=== PATIENT | female | born 1955 | race Caucasian/White ===

== ENCOUNTER 2018-11-16 10:00 | Inpatient (IN) ==
--- NOTE | 2018-11-16 10:33 | Emergency Department Note ---
Disposition Clinical Impression: NSTEMI (non-ST elevated myocardial infarction) Disposition: Admitted As Inpatient Condition: Fair Time of Disposition: 11:55 General Adult HPI - General Chief complaint: ED Chest Pain Stated complaint: CP x1wk Time Seen by Provider: 11/16/18 10:02 Source: patient - History of Present Illness HPI Narrative: Patient is a 63-year-old female with a history of hypertension, diabetes, COPD, CAD, prior MN with stent placement who presented today with chest pain and pressure. She states this pressure started about a week ago but has increased over the past day, she describes it as a pressure that radiates to her neck it comes and goes, she feels sweating. Her shortness of breath is at baseline for her COPD she has no nausea or vomiting. She took a nitroglycerin today which helped the pain. She is an active smoker. She had an echocardiogram one month ago which demonstrated an ejection fraction of 65% and mild left ventricular hypertrophy. She states she has never had a stress test. One week prior she had an endoscopy procedure performed which showed dilated her distal esophagus. Pain Scale: 0 - Related Data Home Medications Medication Instructions Recorded Confirmed Aspirin 81 mg PO DAILY 02/10/16 02/06/17 Atorvastatin Calcium [Lipitor] 80 mg PO DAILY 02/10/16 02/06/17 Lisinopril/Hydrochlorothiazide 1 each PO BID 02/10/16 02/06/17 [Zestoretic 20-25 mg Tablet] Metoprolol [Lopressor] 50 mg PO BID 02/10/16 02/06/17 Nitroglycerin [Nitrostat] 0.4 mg SL Q5M PRN 02/10/16 02/06/17 Omeprazole [PriLOSEC] 40 mg PO DAILY 02/10/16 02/06/17 metFORMIN [Glucophage] 500 mg PO DAILY 02/10/16 02/06/17 Albuterol Sulfate [Ventolin Hfa] 2 puff IH Q4H PRN 02/06/17 02/06/17 Budesonide/Formoterol 160/4.5 2 puff IH BIDR 02/06/17 02/06/17 [Symbicort 160/4.5] Allergies Allergy/AdvReac Type Severity Reaction Status Date / Time No Known Allergies Allergy Verified 02/06/17 08:57 All systems ED: reviewed and negative except as stated. Review of Systems: As Per HPI Constitutional: Denies: fever, chills, weakness Cardiovascular: Reports: chest pain, dyspnea on exertion. Denies: palpitations, orthopnea, edema Respiratory: Denies: cough, dyspnea, wheezes Gastrointestinal: Denies: abdominal pain, nausea, vomiting, diarrhea, constipation, hematemesis Musculoskeletal: Denies: back pain Psychiatric: Reports: anxiety. Denies: depression Past Medical History - Past Medical History Attestation: Yes The following information was validated with the patient. Medical history: Reports: asthma, COPD, coronary artery disease, diabetes, hyperlipidemia, hypertension, myocardial infarction, other Surgical history: Reports: angioplasty/stent, , herniorrhaphy Psychiatric history: Reports: no psych history - Social History Smoking Status: Current every day smoker Smokeless Tobacco Status: No Alcohol use: Reports: occasionally Drug use: Reports: none Physical Exam - General Limitations: no limitations General appearance: alert - Head Head exam: atraumatic, normocephalic - Eye Eye exam: Present: normal appearance, PERRL, EOMI. Absent: scleral icterus, conjunctival injection - ENT ENT exam: normal exam, normal oropharynx, mucous membranes moist - Chest Chest inspection: Present: normal inspection, symmetric chest wall rise. Absent: tenderness - Respiratory Respiratory exam: Present: prolonged expiratory phase. Absent: respiratory distress, wheezes, stridor - Cardiovascular Cardiovascular exam: Present: regular rate, normal rhythm, normal heart sounds - Abdominal Exam Abdominal exam: Present: soft, Non-Tender. Absent: tenderness, distention, guarding, rebound - Neurological Exam Neurological exam: Present: alert, oriented X3 Course Course Narrative: Patient presented with chest pain concerning for cardiac cause. Workup revealed an elevated troponin at 0.20. Patient was started on heparin. - Reevaluation(s) Reevaluation #1: Patient's troponin came back elevated at 0.20. Heparin was ordered. Spoke with patient about admission and lab results. Time: 11:24 - Consultations Consultation #1: Spoke with Dr. Aguirre hospitalists who agreed to take the patient, and would like us to consult cardiology. Time: 11:51 Consultation #2: Spoke with on-call director of medical staff services Dr. Foy at the request of Dr. Thomas the hospitalist. Informed the director of medical staff services and the patient he had no recommendations. Time: 12:43 Vital Signs Temperature 98.0 F 11/16/18 10:04 Pulse Rate 68 11/16/18 10:04 Respiratory Rate 16 11/16/18 10:04 Blood Pressure 161/102 11/16/18 10:04 O2 Sat by Pulse Oximetry 97 11/16/18 10:04 Temperature 98.0 F 11/16/18 10:10 Pulse Rate 51 11/16/18 12:14 Respiratory Rate 18 11/16/18 12:14 Blood Pressure 142/87 11/16/18 12:14 O2 Sat by Pulse Oximetry 95 11/16/18 12:14 Oxygen Delivery Oxygen Delivery Room Air Medical Decision Making - Medical Records Medical records reviewed: Yes I reviewed the patient's medical records. - Lab Data Lab results reviewed: Yes I reviewed the patient's lab results. Result diagrams: 11/16/18 11:28 11/16/18 10:21 Lab Results 11/16/18 11/16/18 11/16/18 Range/Units 10:21 10:21 10:21 WBC 7.2 (4.3-11.1) K/mcL RBC 5.01 H (3.82-4.97) M/mcL Hgb 14.6 (11.5-15.4) g/dL Hct 43.0 (35.3-44.9) % MCV 85.8 (83.0-100.0) fL MCH 29.1 (28.0-33.3) pg MCHC 34.0 (31.6-35.5) g/dL RDW 14.0 (11.5-14.5) % Plt Count 182 (140-400) K/mcL MPV 10.2 (9.4-12.4) fL Immature Gran % 1.0 (0-4) % Seg Neutrophils % 65.7 % Lymphocytes % 23.1 % Monocytes % 6.0 % Eosinophils % 3.6 % Basophils % 0.6 % Neutrophils # 4.7 (1.6-8.9) K/mcL Lymphocytes # 1.7 (0.6-4.6) K/mcL Monocytes # 0.4 (0.0-1.3) K/mcL Eosinophils # 0.3 (0.0-0.6) K/mcL Basophils # 0.0 (0.0-0.2) K/mcL PT 10.5 (9.4-12.1) Seconds INR 0.9 APTT 28.1 (26.0-36.0) Seconds Heparin Anti-Xa, Unfract (0.30-0.70) IU/mL Sodium 137 (136-145) mEq/L Potassium 3.2 L (3.5-5.1) mEq/L Chloride 103 (98-107) mEq/L Carbon Dioxide 25 (23-29) mEq/L BUN 17 (8-23) mg/dL Creatinine 0.81 (0.60-1.20) mg/dL Est GFR ( Amer) > 60 (> 60) Est GFR (Non-Af Amer) > 60 (> 60) BUN/Creatinine Ratio 21 (6-26) Glucose 188 H (70-105) mg/dL Calculated Osmolality 291 (280-300) Calcium 9.5 (8.6-10.3) mg/dL Troponin I 0.20 H* (< 0.04) ng/mL 11/16/18 11/16/18 Range/Units 11:28 11:28 WBC 7.6 (4.3-11.1) K/mcL RBC 4.75 (3.82-4.97) M/mcL Hgb 13.9 (11.5-15.4) g/dL Hct 41.6 (35.3-44.9) % MCV 87.6 (83.0-100.0) fL MCH 29.3 (28.0-33.3) pg MCHC 33.4 (31.6-35.5) g/dL RDW 14.0 (11.5-14.5) % Plt Count 180 (140-400) K/mcL MPV 10.0 (9.4-12.4) fL Immature Gran % (0-4) % Seg Neutrophils % % Lymphocytes % % Monocytes % % Eosinophils % % Basophils % % Neutrophils # (1.6-8.9) K/mcL Lymphocytes # (0.6-4.6) K/mcL Monocytes # (0.0-1.3) K/mcL Eosinophils # (0.0-0.6) K/mcL Basophils # (0.0-0.2) K/mcL PT 10.8 (9.4-12.1) Seconds INR 1.0 APTT (26.0-36.0) Seconds Heparin Anti-Xa, Unfract 0.03 L (0.30-0.70) IU/mL Sodium (136-145) mEq/L Potassium (3.5-5.1) mEq/L Chloride (98-107) mEq/L Carbon Dioxide (23-29) mEq/L BUN (8-23) mg/dL Creatinine (0.60-1.20) mg/dL Est GFR ( Amer) (> 60) Est GFR (Non-Af Amer) (> 60) BUN/Creatinine Ratio (6-26) Glucose (70-105) mg/dL Calculated Osmolality (280-300) Calcium (8.6-10.3) mg/dL Troponin I (< 0.04) ng/mL - Radiology Data Radiology results reviewed: Yes I reviewed the patient's radiology results. Chest X-Ray 11/16/18 10:10 IMPRESSION: No acute findings. No change. D/ / 11/16/2018 10:46:52 Lito Green MD / catracho Interpreting Provider: Lito Green MD - EKG Data EKG #1 EKG results narrative: EKG done at 1013 reviewed by myself and the attending shows sinus rhythm at a rate of 64 with a normal axis, MI 155, QRS 93, QTc 458. There are minor ST depressions in lateral leads 1, V4 through V6. No acute T-wave changes. These changes are different from EKG performed 02/03/2016. Overall this is a abnormal EKG. Heart Score - Score History: Moderately Suspicious EKG: Non Specific repolarisation Disturbance Age: 45-65 Risk Factors: Equal/Greater than 3 risk factor or history of atherosclerotic disease Troponin: Greater than 3x normal limit HEART Score Total: 7
[2018-11-16] MEDS ORDERED: Aspirin 81 MG TAB.CHEW PO STA (10:39)
[2018-11-16 10:45] LABS: Basophils % 0.6 %; Eosinophils # 0.3 K/mcL (0.0-0.6); Eosinophils % 3.6 %; Hemoglobin 14.6 g/dL (11.5-15.4); Lymphocytes # 1.7 K/mcL (0.6-4.6); Lymphocytes % 23.1 %; Mean Corpuscular Hemoglobin 29.1 pg (28.0-33.3); Mean Corpuscular Volume 85.8 fL (83.0-100.0); Mean Platelet Volume 10.2 fL (9.4-12.4); Monocytes # 0.4 K/mcL (0.0-1.3); Neutrophils # 4.7 K/mcL (1.6-8.9); Platelet Count 182 K/mcL (140-400); Red Blood Count 5.01 M/mcL (3.82-4.97); Segmented Neutrophils % 65.7 %; White Blood Count 7.2 K/mcL (4.3-11.1)
[2018-11-16 10:53] LABS: INR 0.9; Prothrombin Time 10.5 Seconds (9.4-12.1)
[2018-11-16 10:56] LABS: Activated Partial Thrombo Time 28.1 Seconds (26.0-36.0)
[2018-11-16 11:12] LABS: BUN/Creatinine Ratio 21 (6-26); Blood Urea Nitrogen 17 mg/dL (8-23); Calcium 9.5 mg/dL (8.6-10.3); Carbon Dioxide 25 mEq/L (23-29); Chloride 103 mEq/L (98-107); Glucose 188 mg/dL (70-105); Osmolality,Calculated 291 (280-300); Potassium 3.2 mEq/L (3.5-5.1); Sodium 137 mEq/L (136-145); eGFR For African Americans > 60 (> 60); eGFR For Non-African Americans > 60 (> 60)
[2018-11-16] MEDS ORDERED: *HR* Heparin 5,000 UNIT/ML VIAL IVP ONE (11:13)
[2018-11-16] MEDS ORDERED: *HR* Heparin 5,000 UNIT/ML VIAL IVP PRN ×2 (11:13)
[2018-11-16] MEDS ORDERED: Nitroglycerin 0.4 MG TAB.SUBL SL PRN (11:22)
[2018-11-16] MEDS: Heparin 25,000 UNIT/250 ML D5W 25,000 UNIT/250 ML IV.SOLN IVC SCH (11:33)
[2018-11-16 11:57] LABS: Hematocrit 41.6 % (35.3-44.9); Hemoglobin 13.9 g/dL (11.5-15.4); Mean Corpuscular HGB Conc 33.4 g/dL (31.6-35.5); Mean Corpuscular Hemoglobin 29.3 pg (28.0-33.3); Mean Corpuscular Volume 87.6 fL (83.0-100.0); Platelet Count 180 K/mcL (140-400); Red Blood Count 4.75 M/mcL (3.82-4.97); White Blood Count 7.6 K/mcL (4.3-11.1)
--- NOTE | 2018-11-16 12:04 | Emergency Department Note ---
Disposition Clinical Impression: NSTEMI (non-ST elevated myocardial infarction) Disposition: Admitted As Inpatient Condition: Good Referrals: NONE,PCP [Primary Care Provider] - Forms: ED Satisfaction Letter Time of Disposition: 12:05 General Adult HPI - General Chief complaint: ED Chest Pain Stated complaint: CP x1wk Time Seen by Provider: 11/16/18 10:02 Source: patient Limitations: no limitations - History of Present Illness Pain Scale: 0 - Related Data Home Medications Medication Instructions Recorded Confirmed Aspirin 81 mg PO DAILY 02/10/16 02/06/17 Atorvastatin Calcium [Lipitor] 80 mg PO DAILY 02/10/16 02/06/17 Lisinopril/Hydrochlorothiazide 1 each PO BID 02/10/16 02/06/17 [Zestoretic 20-25 mg Tablet] Metoprolol [Lopressor] 50 mg PO BID 02/10/16 02/06/17 Nitroglycerin [Nitrostat] 0.4 mg SL Q5M PRN 02/10/16 02/06/17 Omeprazole [PriLOSEC] 40 mg PO DAILY 02/10/16 02/06/17 metFORMIN [Glucophage] 500 mg PO DAILY 02/10/16 02/06/17 Albuterol Sulfate [Ventolin Hfa] 2 puff IH Q4H PRN 02/06/17 02/06/17 Budesonide/Formoterol 160/4.5 2 puff IH BIDR 02/06/17 02/06/17 [Symbicort 160/4.5] Allergies Allergy/AdvReac Type Severity Reaction Status Date / Time No Known Allergies Allergy Verified 02/06/17 08:57 Constitutional: Denies: fever, chills, weakness Cardiovascular: Reports: chest pain, dyspnea on exertion. Denies: palpitations, orthopnea, edema Respiratory: Denies: cough, dyspnea, wheezes Gastrointestinal: Denies: abdominal pain, nausea, vomiting, diarrhea, constipation, hematemesis Musculoskeletal: Denies: back pain Psychiatric: Reports: anxiety. Denies: depression Past Medical History - Past Medical History Medical history: Reports: asthma, COPD, coronary artery disease, diabetes, hyperlipidemia, hypertension, myocardial infarction, other Surgical history: Reports: angioplasty/stent, , herniorrhaphy Psychiatric history: Reports: no psych history - Social History Smoking Status: Current every day smoker Smokeless Tobacco Status: No Alcohol use: Reports: occasionally Drug use: Reports: none Physical Exam - General Limitations: no limitations General appearance: alert Course Vital Signs Temperature 98.0 F 11/16/18 10:04 Pulse Rate 68 11/16/18 10:04 Respiratory Rate 16 11/16/18 10:04 Blood Pressure 161/102 11/16/18 10:04 O2 Sat by Pulse Oximetry 97 11/16/18 10:04 Temperature 98.0 F 11/16/18 10:10 Pulse Rate 54 11/16/18 11:37 Respiratory Rate 14 11/16/18 11:37 Blood Pressure 126/79 11/16/18 11:37 O2 Sat by Pulse Oximetry 99 11/16/18 11:37 Oxygen Delivery Oxygen Delivery Room Air Medical Decision Making - Lab Data Result diagrams: 11/16/18 10:21 11/16/18 10:21 Lab Results 11/16/18 11/16/18 11/16/18 Range/Units 10:21 10:21 10:21 WBC 7.2 (4.3-11.1) K/mcL RBC 5.01 H (3.82-4.97) M/mcL Hgb 14.6 (11.5-15.4) g/dL Hct 43.0 (35.3-44.9) % MCV 85.8 (83.0-100.0) fL MCH 29.1 (28.0-33.3) pg MCHC 34.0 (31.6-35.5) g/dL RDW 14.0 (11.5-14.5) % Plt Count 182 (140-400) K/mcL MPV 10.2 (9.4-12.4) fL Immature Gran % 1.0 (0-4) % Seg Neutrophils % 65.7 % Lymphocytes % 23.1 % Monocytes % 6.0 % Eosinophils % 3.6 % Basophils % 0.6 % Neutrophils # 4.7 (1.6-8.9) K/mcL Lymphocytes # 1.7 (0.6-4.6) K/mcL Monocytes # 0.4 (0.0-1.3) K/mcL Eosinophils # 0.3 (0.0-0.6) K/mcL Basophils # 0.0 (0.0-0.2) K/mcL PT 10.5 (9.4-12.1) Seconds INR 0.9 APTT 28.1 (26.0-36.0) Seconds Sodium 137 (136-145) mEq/L Potassium 3.2 L (3.5-5.1) mEq/L Chloride 103 (98-107) mEq/L Carbon Dioxide 25 (23-29) mEq/L BUN 17 (8-23) mg/dL Creatinine 0.81 (0.60-1.20) mg/dL Est GFR ( Amer) > 60 (> 60) Est GFR (Non-Af Amer) > 60 (> 60) BUN/Creatinine Ratio 21 (6-26) Glucose 188 H (70-105) mg/dL Calculated Osmolality 291 (280-300) Calcium 9.5 (8.6-10.3) mg/dL Troponin I 0.20 H* (< 0.04) ng/mL Attestation Statement - Attestation Attestation: I reviewed the residents documentation and agree with the residents assessment and plan of care. I have personally had face to face time with the patient. (Brief History, Brief Exam, and MDM) I personally supervised and was present for the [place]/critical portions of the following procedures completed by the resident: EKG 63 year old female presents to the ED with moderate risk for ACS and previous history of stent placement secondary to an ND in the past. Anjali is experiencing icnreaesed exertional dyspnea and has a heart score of 7 and nitro/ASA has helped iwth he rpain. Previous recent history of esophageal dil itation witohut difficulty in swallowing. She does have bssleine COPD but is not experiencing wheezig at this time. She has a troponoin of .[address] depression and have started heparin therapy and will admit to medicine and jassi been accepted by dr. Aguirre. He has requested a cardiology consult and we will consult cardiology
[2018-11-16 12:19] LABS: Heparin anti-factor XA UFH 0.03 IU/mL (0.30-0.70)
[2018-11-16 12:20] LABS: Prothrombin Time 10.8 Seconds (9.4-12.1)
--- NOTE | 2018-11-16 14:23 | Internal Med History&Physical ---
Date of Encounter: 11/16/18 Time of Encounter: 14:06 Internal Medicine - H&P: HPI Chief complaint: chest pain Admitted From: Home Plans for Post Hospital Care: Home History of present illness: Ms. Rucker is a 63 year old female with past medical history of diabetes, hyperplastic polyposis syndrome, hypertension, GERD, COPD, sleep apnea on CPAP but noncompliant, coronary artery disease with last stent in October 2012 when she had 2 stent placed in came in with complain of chest pain. She has been having chest pain for almost a month however it has worsened over the last week. She recently had upper endoscopy on 11/07/18 with dilation performed of esophagus. Patient has history of reflux disease. She is being having chest pain which radiates to her left arm occasionally to her jaw and her back if it severe. Thi s has been going on for about a month but over the past week it has been more severe. No significant association with food or activity. Does mention some shortness of breath and palpitation associated with it. Denies any lightheadedness or perspiration. She does continues to smoke about a pack a day. Denies any syncopal episodes. Denies any nausea vomiting or diarrhea. Denies any bowel or urinary complaints. She appears to be noncompliant with her CPAP use. Denies any fevers or chills. Patient was evaluated in the ER and was found to have elevated troponin of 0.2 and abnormal EKG with ST depressions. Admission was requested for concern of NSTEMI. Past Med Surg Social Fam HX - Past Medical History Medical history: asthma, COPD, coronary artery disease, diabetes, hyperlipidemia, hypertension, myocardial infarction, other Additional medical history: anemia, Psychiatric history: no psych history - Past Surgical History Surgical History: angioplasty/stent, , herniorrhaphy Additional surgical history: colonoscopy - heart cath with stent - d/c tubal ligation - uterine polyp, - Social History Smoking Status: Current every day smoker Smokeless Tobacco Status: No Alcohol use: occasionally Drug use: none - Additional Family History Additional family history: Reviewed and non-contributory Internal Medicine - H&P: Meds Aspirin 81 mg PO DAILY 02/10/16 [History] Atorvastatin Calcium [Lipitor] 80 mg PO DAILY 02/10/16 [History] Lisinopril/Hydrochlorothiazide [Zestoretic 20-25 mg Tablet] 1 each PO BID 02/10/16 [History] Metoprolol [Lopressor] 50 mg PO BID 02/10/16 [History] Nitroglycerin [Nitrostat] 0.4 mg SL Q5M PRN 02/10/16 [History] Omeprazole [PriLOSEC] 40 mg PO DAILY 02/10/16 [History] metFORMIN [Glucophage] 500 mg PO DAILY 02/10/16 [History] Albuterol Sulfate [Ventolin Hfa] 2 puff IH Q4H PRN 02/06/17 [History] Budesonide/Formoterol 160/4.5 [Symbicort 160/4.5] 2 puff IH BIDR 02/06/17 [ History] Allergy/AdvReac Type Severity Reaction Status Date / Time No Known Allergies Allergy Verified 02/06/17 08:57 All Systems PM: A 10-system review of systems was performed and is negative for pertinent findings except as documented above in the HPI. - Constitutional Vitals: Temp Pulse Resp BP Pulse Ox 98.0 F 51 18 142/87 95 11/16/18 10:10 11/16/18 12:14 11/16/18 12:14 11/16/18 12:14 11/16/18 12:14 Exam: Constitutional: Vitals as noted. Conversant. No Apparent Distress. Well groomed. No obvious deformities. Eyes : Sclera white, conjunctiva clear, no lid lag, PEARLA. ENT : Grossly normal hearing. Oropharyngeal exam unremarkable. Moist mucus membranes. No JVD, no cervical lymphadenopathy. no thyromegaly or mass. Respiratory : Clear to auscultation bilaterally. No accessory muscle use, rales, rhonchi or wheezes Cardiovascular : RRR, +S1, +S2. no murmur, gallop, rubs. No chest wall tenderness GI/Abdominal : Soft, Non-tender, Non-distended, normal bowel sounds, soft, no peritoneal signs. no orgenomegaly or mass appreciated. no hernia. Musculoskeletal: no deformity noted. no edema or cyanosis. warm extremities, pulses palpable and symmetrical in UE/LE. no calf tenderness. Neurological: AO X3, CN II-XII grossly intact, grossly normal motor and sensory exam. Skin: No skin rash, lesions or ulcers noted. Pych: Good insight and judgement. Intact memory. AOx3. Internal Med - H&P Results - Labs CBC & Chem 7: 11/16/18 11:28 11/16/18 10:21 Labs: Short CBC 11/16/18 11/16/18 Range/Units 10:21 11:28 WBC 7.2 7.6 (4.3-11.1) K/mcL Hgb 14.6 13.9 (11.5-15.4) g/dL Hct 43.0 41.6 (35.3-44.9) % Plt Count 182 180 (140-400) K/mcL Neutrophils # 4.7 (1.6-8.9) K/mcL BMP 11/16/18 10:21 Sodium 137 Potassium 3.2 L Chloride 103 Carbon Dioxide 25 BUN 17 Creatinine 0.81 Glucose 188 H Calcium 9.5 Cardiac Enzymes 11/16/18 Range/Units 10:21 Troponin I 0.20 H* (< 0.04) ng/mL - EKG Data -: EKG Interpreted by Myself (new st depression in inferior and lateral leads) EKG shows normal: sinus rhythm - Impressions ITS Impressions Chest X-Ray 11/16/18 10:10 IMPRESSION: No acute findings. No change. D/ / 11/16/2018 10:46:52 Lito Green MD / catracho Interpreting Provider: Lito Green MD - Assessment and Plan (1) NSTEMI (non-ST elevated myocardial infarction) Current Visit: Yes Status: Acute Assessment and plan: Patient has history depression in inferior and lateral leads. We will continue the patient on heparin drip. We will consult cardiology. Keep nothing by mouth after midnight. Patient would likely need left heart catheter. continue aspirin, statin and metoprolol (2) Diabetes Current Visit: Yes Status: Acute Assessment and plan: Hold home metformin. Keep patient on Accu-Cheks and sliding scale insulin Continue insulin the morning. 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 Qualifiers: Hypertension type: essential hypertension Qualified Code(s): I10 - Essential (primary) hypertension (4) COPD (chronic obstructive pulmonary disease) Current Visit: Yes Status: Acute Assessment and plan: Not in exacerbation. Keep on when necessary albuterol and Symbicort. She mentioned she is on breo however Symbicort listed as home med. We will need to confirm with pharmacy. We will resume home inhalers. Qualifiers: COPD type: emphysema Emphysema type: unspecified Qualified Code(s): J43.9 - Emphysema, unspecified (5) Sleep apnea Current Visit: Yes Status: Acute Assessment and plan: We will continue patient on CPAP overnight. Qualifiers: Sleep apnea type: unspecified type Qualified Code(s): G47.30 - Sleep apnea, unspecified (6) GERD (gastroesophageal reflux disease) Current Visit: Yes Status: Acute Assessment and plan: continue home omeprazole Qualifiers: Esophagitis presence: without esophagitis Qualified Code(s): K21.9 - Gastro-esophageal reflux disease without esophagitis - Time Spent With Patient Total time spent is greater than 50% in coordination of care (as documented) at patient's floor/unit and/or counseling patient:
[2018-11-16] MEDS ORDERED: Dextrose Gel 15 GM/37.5 ML TUBE PO PRN ×2 (15:01)
[2018-11-16] MEDS ORDERED: D5% in Water 1,000 ML IVC PRN (15:01)
[2018-11-16] MEDS ORDERED: *HR* Dextrose 50 % in Water (Syg) 50 ML SYRINGE IVP PRN (15:01)
[2018-11-16] MEDS: Insulin LISPRO 300 UNITS/3 ML VIAL SQ SCH (18:16)
[2018-11-16] MEDS: Budesonide/Formoterol 160/4.5 1 PUFF INH IH SCH (22:07)
--- NOTE | 2018-11-17 00:48 | Electrocardiograph Report ---
[facility] Test Date: 2018-11-16 Pat Name: Janee Rucker Department: [id number] Room: 2A35 Gender: F Spudder: : [id number] Requested By: Olga Joiner Order Number: [id number] Reading MD: Dyllan Garcia Measurements Intervals [place] Rate: 64 P: 20 VA: 155 QRS: 0 QRSD: 93 T: -38 QT: 443 QTc: 458 Interpretive Statements Sinus rhythm Probable LVH with secondary repol abnrm Electronically Signed On 11-17-2018 0:47:01 EDT by Dyllan Garcia
--- NOTE | 2018-11-17 07:49 | Cardiology Consult Note ---
Date of Encounter: 11/17/18 Time of Encounter: 07:47 Assessment and Plan (1) NSTEMI (non-ST elevated myocardial infarction) Current Visit: Yes Status: Acute Mild elevation of troponins in the setting of accelerated crescendo angina and EKG changes. Risks benefits and alternatives discussed with the patient and she agrees to proceed Discussion w patient/family: The assessment and plan as outlined above was discussed with the patient and/or family members who expressed understanding and agreement. All questions were answered. Thank you for involving us in the care of your patient. Please call with any questions. History of Present Illness Consult date: 11/17/18 Consult reason: Chest Pain Chief complaint: Pain in my chest History of present illness: Ms. Rucker is a 63 year old female with multiple cardiac risk factors including diabetes, hypertension, coronary artery disease status post-PCI in 2012 to an unknown vessel presents with chest pain ongoing for the last 4 weeks with progression an acceleration of her symptoms the last week prompted her presentation to the emergency department. Patient describes retrosternal chest pain radiating to her left upper extremity associated with shortness of breath. EKG shows inferior lateral ST changes suggestive of underlying ischemia. Risks benefits and alternatives of and LHC were discussed patient she agrees to proceed Past Med Surg Social Fam HX - Past Medical History Medical history: asthma, COPD, coronary artery disease, diabetes, hyperlipidemia, hypertension, myocardial infarction, other Additional medical history: anemia, Psychiatric history: no psych history - Past Surgical History Surgical History: angioplasty/stent, , herniorrhaphy Additional surgical history: colonoscopy - heart cath with stent - d/c tubal ligation - uterine polyp, - Social History Smoking Status: Current every day smoker Packs per day: 1 Smokeless Tobacco Status: No Alcohol use: occasionally Drug use: none Medications and Allergies Aspirin 81 mg PO DAILY 02/10/16 [History] Atorvastatin Calcium [Lipitor] 80 mg PO DAILY 02/10/16 [History] Lisinopril/Hydrochlorothiazide [Zestoretic 20-25 mg Tablet] 1 each PO BID 02/10/16 [History] Metoprolol [Lopressor] 50 mg PO BID 02/10/16 [History] Nitroglycerin [Nitrostat] 0.4 mg SL Q5M PRN 02/10/16 [History] Omeprazole [PriLOSEC] 40 mg PO DAILY 02/10/16 [History] metFORMIN [Glucophage] 500 mg PO DAILY 02/10/16 [History] Albuterol Sulfate [Ventolin Hfa] 2 puff IH Q4H PRN 02/06/17 [History] Budesonide/Formoterol 160/4.5 [Symbicort 160/4.5] 2 puff IH BIDR 02/06/17 [History] Allergy/AdvReac Type Severity Reaction Status Date / Time No Known Allergies Allergy Verified 02/06/17 08:57 All Systems Review: The remainder of the systems were reviewed and are negative Physical Examination Vital Signs, Last 4 Hours Temp Pulse Resp BP Pulse Ox 11/17/18 07:21 97.3 F L 50 16 117/71 95 11/17/18 04:10 97.9 F 51 17 99/55 94 General: Conversant, No Apparent Distress HEENT: Atraumatic, Normocephaly, Mucus Membranes Moist Neck: No JVD, Normal carotid pulses Cardiac: Reg Rate and Rhythm, Normal S1 and S2, No Murmur Lungs: Normal Breath Sounds, No Wheeze, Rales, Rhonchi Neuro: Alert and responsive, No focal deficits noted Abdomen: Soft, Non-Tender Skin: No rashes noted on visualized skin Musculoskeletal: No Chest Wall Tenderness Extremities: No Clubbing, No Cyanosis, No Edema, Normal Pulses Results 11/16/18 11:28 11/16/18 10:21 Lab Results 11/16/18 11/16/18 11/16/18 10:21 10:21 10:21 WBC 7.2 Hgb 14.6 Hct 43.0 Plt Count 182 INR 0.9 APTT 28.1 Sodium 137 Potassium 3.2 L Chloride 103 Carbon Dioxide 25 BUN 17 Creatinine 0.81 Glucose 188 H Calcium 9.5 Troponin I 0.20 H* 11/16/18 11/16/18 11:28 11:28 WBC 7.6 Hgb 13.9 Hct 41.6 Plt Count 180 INR 1.0 APTT Sodium Potassium Chloride Carbon Dioxide BUN Creatinine Glucose Calcium Troponin I Consult Discharge Plan - Plan Referrals: NONE,PCP [Primary Care Provider] -
[2018-11-17] MEDS: Insulin LISPRO 300 UNITS/3 ML VIAL SQ SCH ×2 (08:04→17:51)
[2018-11-17] MEDS: Aspirin 81 MG TAB.CHEW PO SCH (08:05)
[2018-11-17] MEDS: Budesonide/Formoterol 160/4.5 1 PUFF INH IH SCH ×2 (08:32→20:44)
[2018-11-17 08:33] LABS: BUN/Creatinine Ratio 26 (6-26); Blood Urea Nitrogen 21 mg/dL (8-23); Calcium 9.8 mg/dL (8.6-10.3); Carbon Dioxide 28 mEq/L (23-29); Glucose 127 mg/dL (70-105); eGFR For African Americans > 60 (> 60); eGFR For Non-African Americans > 60 (> 60)
[2018-11-17 09:48] LABS: Chloride 103 mEq/L (98-107); Osmolality,Calculated 293 (280-300); Potassium 3.7 mEq/L (3.5-5.1); Sodium 139 mEq/L (136-145)
--- NOTE | 2018-11-17 12:18 | Internal Med Progress Note ---
Hospitalist Progress Note - Encounter Date of Encounter: 11/17/18 Time of Encounter: 08:00 - Subjective Interval History: No major events overnight. Patient was seen this a.m. He denied fever, chills or night sweats. sHe has no nausea, vomiting or abdominal pain. Patient denied chest pain, shortness of breath or palpitation. - Exam Vitals: Temp Pulse Resp BP Pulse Ox 97.5 F L 53 17 111/68 96 11/17/18 11:11/17/18 11:11/17/18 11:11/17/18 11:11/17/18 11:21 Exam: General: Patient is alert, oriented 3. Head: Atraumatic, normal inspection, normocephalic. Eye: EOMI, PERRLA, no scleral icterus noted. ENT: Mucous membranes moist. No odontogenic infection noted. Neck: Normal inspection, no meningismus. Respiratory: No respiratory distress, rhonchi, or wheezes noted. Cardiovascular: Regular rate and regular rhythm, S1 and S2 audible. No murmurs, rubs, or gallops. GI: Soft, nondistended, normal bowel sounds. Extremities:No joint swelling, pedal edema, or tenderness noted. Neurological: Alert, oriented 3, no focal deficits. Psychiatric: normal affect, normal mood. Skin: Dry, intact, warm. Normal color. No rashes. - Assessment and Plan (1) NSTEMI (non-ST elevated myocardial infarction) Current Visit: Yes Status: Acute (2) Diabetes Current Visit: Yes Status: Acute (3) HTN (hypertension) Current Visit: Yes Status: Chronic (4) COPD (chronic obstructive pulmonary disease) Current Visit: Yes Status: Chronic (5) Sleep apnea Current Visit: Yes Status: Chronic (6) GERD (gastroesophageal reflux disease) Current Visit: Yes Status: Chronic - Summary of Assessment and Plan Summary of Assessment and Plan: Ms. Rucker is a 63 year old female with past medical history of diabetes, hyperplastic polyposis syndrome, hypertension, GERD, COPD, sleep apnea on CPAP but noncompliant, coronary artery disease with last stent in October 2012 when she had 2 stent placed in came in with complain of chest pain. Her symptoms are managed as following: NSTEMI: - TYPE I event - No ischemic changes on EKG. Troponin is trending up 0.3. Patient is asymptomatic and denies chest pain. - On aspirin, heparin drip, Lipitor and Lopressor 50 mg twice a day - Limited echo revealed preserved ejection fraction. Echo on 10/16: 50 EF 65%, LVH, DD. - Cardiology is on board, plans for [facility] tomorrow. npo after midnight - We will keep trending troponin every 6 hours until it peaks. Type II DM: - On metformin at home. Will DC. - On Accu-Chek 3 times a day before meals, ADA diet, MSSD. HTN: Controlled - Continue home dose Lopressor. Hold lisinopril and hydrochlorothiazide in anticipation of this heart catheterization tomorrow. COPD: - On room air, no signs of exacerbation. - Continue home dose Symbicort. DVT ppx: continue heparin gtt Diet: NPO after midnight. I reviewed independently all laboratory workup, pertinent images including x- rays and CT scans. I also reviewed independently and EKGs and my findings are in the body of my assessment and plan. I ordered the laboratory workup and images myself. I discussed finding with patient's, their families, RN's and consultants involved in the care of the patient. - Time Spent with Patient Total time spent is greater than 50% in coordination of care (as documented) at patient's floor/unit and/or counseling patient: Internal Medicine: Result - Labs CBC & Chem 7: 11/16/18 11:28 11/17/18 07:54 Labs: BMP 11/17/18 07:54 Sodium 139 Potassium 3.7 Chloride 103 Carbon Dioxide 28 BUN 21 Creatinine 0.81 Glucose 127 H Calcium 9.8 Cardiac Enzymes 11/17/18 Range/Units 07:54 Troponin I 0.30 H* (< 0.04) ng/mL - ABG Interpretation ABG results: PT/INR, D-dimer PT 10.8 Seconds (9.4-12.1) 11/16/18 11:28 - Impressions Impressions Echocardiogram Limited Views 11/17/18 10:00 Impressions: LVEF 60-65%. Normal right ventricular size and function. Left Ventricular Wall Motion: Rest Echo Findings All wall segments showed normal motion. Findings: Study Quality * Technically adequate exam. ECG Findings * Sinus bradycardia. Left Ventricle * LVEF 60-65%. * Normal LV chamber size and systolic function. * Mild concentric left ventricular hypertrophy. Right Ventricle * Normal right ventricular structure and function. Left Atrium * Mildly dilated left atrium. Right Atrium * Normal right atrial size. 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 use Diabetes mellitus complication status: with hyperglycemia Qualified Code(s): E11.65 - Type 2 diabetes mellitus with hyperglycemia (3) HTN (hypertension) Qualifiers: Hypertension type: essential hypertension Qualified Code(s): I10 - Essential (primary) hypertension (4) COPD (chronic obstructive pulmonary disease) Qualifiers: COPD type: emphysema Emphysema type: unspecified Qualified Code(s): J43.9 - Emphysema, unspecified (5) Sleep apnea Qualifiers: Sleep apnea type: unspecified type Qualified Code(s): G47.30 - Sleep apnea, unspecified (6) GERD (gastroesophageal reflux disease) Qualifiers: Esophagitis presence: without esophagitis Qualified Code(s): K21.9 - Gastro- esophageal reflux disease without esophagitis
[2018-11-17] MEDS: Heparin 25,000 UNIT/250 ML D5W 25,000 UNIT/250 ML IV.SOLN IVC SCH (17:54)
[2018-11-18 06:33] LABS: Hematocrit 42.1 % (35.3-44.9); Hemoglobin 13.9 g/dL (11.5-15.4); Mean Corpuscular Hemoglobin 29.1 pg (28.0-33.3); Mean Corpuscular Volume 88.3 fL (83.0-100.0); Mean Platelet Volume 10.3 fL (9.4-12.4); Platelet Count 182 K/mcL (140-400); Red Blood Count 4.77 M/mcL (3.82-4.97); White Blood Count 6.8 K/mcL (4.3-11.1)
[2018-11-18 06:58] LABS: BUN/Creatinine Ratio 36 (6-26); Blood Urea Nitrogen 31 mg/dL (8-23); Calcium 9.7 mg/dL (8.6-10.3); Carbon Dioxide 24 mEq/L (23-29); Chloride 103 mEq/L (98-107); Glucose 136 mg/dL (70-105); Osmolality,Calculated 299 (280-300); Potassium 3.8 mEq/L (3.5-5.1); Sodium 140 mEq/L (136-145); eGFR For African Americans > 60 (> 60); eGFR For Non-African Americans > 60 (> 60)
[2018-11-18] MEDS: Insulin LISPRO 300 UNITS/3 ML VIAL SQ SCH ×3 (08:17→16:30)
[2018-11-18] MEDS: Aspirin 81 MG TAB.CHEW PO SCH (08:25)
[2018-11-18] MEDS: Budesonide/Formoterol 160/4.5 1 PUFF INH IH SCH ×2 (10:49→19:34)
--- NOTE | 2018-11-18 10:59 | Electrocardiograph Report ---
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
--- NOTE | 2018-11-18 11:28 | Electrocardiograph Report ---
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
[2018-11-18] MEDS ORDERED: ISOVUE-370 200 ML INFUS..BTL ONE ×2 (13:42→14:56)
[2018-11-18] MEDS ORDERED: 0.9 % Sodium Chloride 2,000 ML ONE (13:42)
[2018-11-18] MEDS ORDERED: *HR* Heparin 10,000 UNIT/10 ML VIAL ONE (13:42)
[2018-11-18] MEDS ORDERED: Heparin 1,000 UNITS/500 mL 500 ML ONE (13:42)
[2018-11-18] MEDS ORDERED: Nitroglycerin 1,000 MCG/10 ML VIAL IV ONE (13:42)
[2018-11-18] MEDS ORDERED: *HR* FentaNYL (PF) 100 MCG/2 ML VIAL ONE (13:54)
[2018-11-18] MEDS ORDERED: *HR* Midazolam HCl 2 MG/2 ML VIAL ONE (13:54)
--- NOTE | 2018-11-18 14:04 | Pre-Sedation Evaluation ---
Pre-sedation evaluation - Pre-sedation checklist Date of procedure: 11/18/18 Procedure: C Recent Vitals: Last Vital Signs Temp 97.9 F 11/18/18 12:04 Pulse 48 11/18/18 12:04 Resp 16 11/18/18 12:04 BP 130/69 11/18/18 12:04 Pulse Ox 95 11/18/18 12:04 H&P (including ROS) documented in medical record: Yes Previous reaction to sedatives/anesthetics: No Dietary Status: NPO after Midnight Dentition: No loose teeth or bridges ASA Classification *see protocol: CLASS II-Mild systemic disease Cardiac Registry (Cardio Only) - Functional Capacity Functional Capacity: >=4 METS without symptoms - Clincal Frailty Scale Clinical Frailty Scale: Managing Well
[2018-11-18] MEDS ORDERED: Tirofiban 12.5 MG/250ML 12.5 MG/250 ML BAG ONE (14:28)
[2018-11-18] MEDS ORDERED: Tirofiban 12.5 MG/250ML 12.5 MG/250 ML BAG IVC SCH (15:15)
--- NOTE | 2018-11-18 15:39 | Invasive Diagnostic Lab Proc ---
Name: Janee Rucker Date of Study: 11/18/2018 Date: 1955 Ht: 61.0in Medical Record#: [id number] Age: 63 Wt: 185.19lb Gender: Female BSA: 1.83 Order #: [id number] BMI: 34.96 Physicians Procedure Physician: Nael Foy MD Referring MD: Referring MD: Staff Name Position Time In [facility] RT (R) Scrub 01:55 PM Aldair Perez RN Monitor 01:55 PM Anyi Gamez RN Build Engineer 01:55 PM Indications Indication Non-Stemi Procedures Performed Procedure L HRT ARTERY/VENTRICLE ANGIO PRQ CARD PETEY STENT W/ANGIO 1 VSL PRQ CARD STENT W/ANGIO ADDL Pre-Procedure Checklist Informed consent is complete signed and on chart. H&P is on chart. ID band is on and ID verified with patient. Patient NPO for procedure The procedure was described for the patient and questions were answered. ECG is on chart. Plan of Care Patient will tolerate the procedure without complications. Adequate level of comfort will be maintained. Hemodynamics will remain stable Patient will recover from procedure without complications. Respiratory function will be maintained. Cardiac rhythm will remain stable. Patient temperature will be maintained. Patient and/or family have verbalized understanding of the procedure. Patient Education Chief Complaint/Reason for Test: Cardiac Cath Developmental Category: Adult (18-64 years) Developmentally Appropriate for Age: Yes Learning Barriers: None Education Needs: Procedure Education Method: Verbal Information Taught: Cardiac Cath Educational Evaluation: Able to repeat information Intravenous Access Time IV Size Location DC'd Fluid/Drip Rate Units RN 0.9NaCl ml/hr Allergies nkda No Known Allergies Vital Signs Time BP (mmHg) HR (bpm) O2 Sat. RR (bpm) LOC 02:04 PM / % 5 = Fully awake and oriented or at pre-proc level 02:04 PM / % 4 = Oriented but drowsy 02:19 PM / % 4 = Oriented but drowsy 02:08 PM 144 / 79 44 99 % 9 02:13 PM 119 / 70 48 97 % 7 02:18 PM 119 / 67 49 97 % 7 02:23 PM 105 / 76 96 97 % 8 02:27 PM 118 / 78 45 97 % 13 02:33 PM 126 / 81 45 98 % 14 02:38 PM 128 / 74 46 99 % 11 02:43 PM 134 / 77 46 99 % 0 02:48 PM 131 / 71 49 98 % 0 02:53 PM 130 / 71 46 97 % 20 02:58 PM 126 / 69 44 96 % 9 03:03 PM 112 / 69 45 95 % 7 03:08 PM 125 / 71 43 100 % 7 Procedural Medications Time Medication Dose Units Method Given By 02:04 PM Oxygen 2 L/min nasal cannula Anyi Gamez RN 02:08 PM Versed 1 mg Intravenous Anyi Gamez RN 02:08 PM Fentanyl 50 mcg Intravenous Anyi Gamez RN 02:21 PM Lidocaine 2% 20 ml Subcutaneous Nael Foy MD 02:29 PM Heparin 3500 units Intravenous Anyi Gamez RN 02:30 PM Aggrastat Bolus: 42 ml Intravenous Anyi Gamez RN 02:30 PM Aggrastat 12.5mg/250ml 15 ml Intravenous Anyi Gamez RN 02:47 PM Nitroglycerin 200 mcg Intracoronary Nael Foy MD 02:53 PM Nitroglycerin 200 mcg Intracoronary Nael Foy MD 02:58 PM Nitroglycerin 200 mcg Intracoronary Nael Foy MD 03:08 PM Plavix 600 mg Orally Anyi Gamez RN ASA Classification: CLASS II- Mild systemic disease (i.e. well-controlled diabetes, hypertension, asthma, cigarette smoking) Lisa Score Preprocedure Postprocedure Activity 2- Moves 4 extremities sustained head lift Activity 2- Moves 4 extremities sustained head lift Circulation 2- SBP +/= 20 points of pre-anesthetic level Circulation 2- SBP +/= 20 points of pre-anesthetic level Consciousness 2- Awake and alert oriented x 3 Consciousness 2- Awake and alert oriented x 3 O2 Saturation 2- Able to maintain O2 satruation of 92% on room air O2 Saturation 2- Able to maintain O2 satruation of 92% on room air Respiratory 2- Able to deep breathe and cough well Respiratory 2- Able to deep breathe and cough well Total Score 10 Total Score 10 Contrast Agent: Isovue Diagnostic Contrast: 200 ml Total Contrast: 200 ml Fluoro Dose: 87 mGy Procedure Log Time Note Enter By 01:55 PM 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 cedwards 01:55 PM Anisha Fofana RT (R) Position: Scrub Time in: 13:55 cedwards 01:55 PM Aldair Perez RN Position: Monitor Time in: :55 cedwards 01:55 PM Anyi Gamez RN Position: Build Engineer Time in: :55 cedwards 02:03 PM Physician arrived 14:03 cedwards 02:03 PM ASA Class CLASS II- Mild systemic disease (i.e. well-controlled diabetes, hypertension, asthma, cigarette smoking) cedwards 02:03 PM Meet and greet completed cedwards 02:03 PM Sign in performed according to hospital policy. Informed consent was obtained. cedwards 02:03 PM Procedure start 14:03 cedwards 02:04 PM Time: 14:03 Patient comfortable and pain free: Yes cedwards 02:04 PM Time: 14:04LOC: 5 = Fully awake and oriented or at pre-proc level cedwards 02:04 PM Time: 14:04 Oxygen on at 2 L/min per nasal cannula by Anyi Gamez RN cedwards 02:07 PM Vitals capture started with the following parameters, Patient=Adult, Interval=5 min, Initial Kngwjtow=540 mmHg, Deflation Rate=5 mmHg, Cuff placed on Left Arm 02:07 PM CathStat 02:08 PM Recorded ECG: HR=45 Condition=Condition 1 02:08 PM HR=44 bpm, UOWY=506/79 mmhg, SpO2=99.0 %, Resp=9 B/min, EtCO2=34 mmHg, Comment=NSR 02:08 PM Recorded ECG: HR=43 Condition=Condition 1 02:08 PM Time: 14:08 Versed 1 mg Intravenous Given by Anyi Gamez RN cedwards 02:08 PM Time: 14:08 Fentanyl 50 mcg Intravenous Given by Anyi Gamez RN cedwards 02:13 PM HR=48 bpm, VUTA=843/70 mmhg, SpO2=97.0 %, Resp=7 B/min, EtCO2=34 mmHg, Comment=NSR 02:15 PM Recorded ECG: HR=48 Condition=Condition 1 02:18 PM HR=49 bpm, MOCV=782/67 mmhg, SpO2=97.0 %, Resp=7 B/min, EtCO2=35 mmHg, Comment=NSR 02: PM Time: 14:04LOC: 4 = Oriented but drowsy ced: PM Time: 14:04 Patient comfortable and pain free: Yes ced: PM Hair removed from procedure site in procedure lab using clippers. Bilateral groin prepped with Chloraprep by Anisha Fofana (R), then patient was draped. Skin intact. ced: PM Clinical Presentation: Unstable angina cedwards : PM Time out was performed according to hospital policy. Conscious sedation and anesthesia was achieved (see medication log with in this report above) cedwards : PM Time: : 20 ml Lidocaine 2% to right groin Subcutaneous Given by Nael Foy MD ced 02: PM Micro-Introducer Kit utilized for sheath placement cedwards 02: PM HR=96 bpm, NBDT=036/76 mmhg, SpO2=97.0 %, Resp=8 B/min, EtCO2=44 mmHg, Comment=NSR : PM Access obtained by percutaneous puncture. 6Fr 10cm Terumo Falconer sheath placed in right Femoral artery. [id number] ced 02:23 PM 0.035 145cm Navilyst 3mmJ wire [id number] ced 02:24 PM 5Fr FR 4 catheter inserted over the wire [facility] ced 02:24 PM Recorded Pressure: Ao, HR=47, Condition=Condition 1 (Aorta) Ao 109/65/84 02:25 PM RCA angiography performed in multiple views. ced 02:25 PM Catheter removed ced 02: PM 5Fr FL 4 catheter inserted over the wire [facility] ced 02:26 PM LCA angiography performed in multiple views. cedwards 02:27 PM HR=45 bpm, IPYU=188/78 mmhg, SpO2=97.0 %, Resp=13 B/min, EtCO2=41 mmHg, Comment=NSR 02:28 PM Catheter removed ced 02: PM Lesion found in Proximal Circumflex. Pre Stenosis: 90 Pre REJI Flow: 3: Complete and Brisk Flow/Perfusion ced: PM Time: 14:29 Heparin 3500 units Intravenous Given by Anyi Gamez RN cedwards 02:30 PM Recorded Pressure: LV, HR=46, Condition=Condition 1 (Left Ventricle) LV 124/11/13 02:30 PM Recorded Pressure: LV, Ao, HR=46, Condition=Condition 1 (Left Ventricle) LV 121/2/20, (Aorta) Ao 125/9/79 02:30 PM Time: 14:30 Aggrastat Bolus: 42 ml Intravenous Given by Anyi Gamez RN Perkins pump cedwards 02:31 PM Time: 14:30 Aggrastat 12.5mg/250ml 15 ml Intravenous Given by Anyi Gamez RN Perkins pump cedwards 02:31 PM 6Fr XB LAD 3.5 Cordis guide catheter was used to cannulate the PCI vessel successfully. reused? No cedwards 02:31 PM .014 BMW Patterson 190cm guide wire across target lesion- successful. reused? No cedwards 02:31 PM Inflation device was opened. cedwards 02:31 PM 2.0 mm x 12 mm Emerge Monorail balloon across target lesion- successful. reused? No cedwards 02:33 PM HR=45 bpm, COMM=703/81 mmhg, SpO2=98.0 %, Resp=14 B/min, EtCO2=37 mmHg, Comment=NSR 02:33 PM Recorded Pressure: Ao, HR=45, Condition=Condition 1 (Aorta) Ao 110/58/79 02:34 PM Time: 14:19 Patient comfortable and pain free: Yes cedwards 02:34 PM Time: 14:19LOC: 4 = Oriented but drowsy cedwards 02:35 PM Balloon inflated @ 6 papi for 8 seconds cedwards 02:35 PM Balloon inflated @ 8 papi for 9 seconds cedwards 02:36 PM Balloon catheter removed intact. cedwards 02:37 PM 3.0mm x 16mm Synergy drug-eluting stent across target lesion- successful Lot #[id number] cedwards 02:38 PM HR=46 bpm, HQLS=654/74 mmhg, SpO2=99.0 %, Resp=11 B/min, EtCO2=47 mmHg, Comment=NSR 02:38 PM Stent deployed @ 9 papi for 10 seconds cedwards 02:38 PM Stent balloon reinflated @ 11 papi for 4 seconds cedwards 02:39 PM Stent delivery system removed intact. cedwards 02:41 PM Recorded Pressure: Ao, HR=51, Condition=Condition 1 (Aorta) Ao 141/74/101 02:43 PM HR=46 bpm, JKEB=428/77 mmhg, SpO2=99.0 %, Resp=0 B/min, EtCO2=44 mmHg, Comment=NSR 02:43 PM Lesion found in 1st Marginal. Pre Stenosis: 70 Pre REJI Flow: 3: Complete and Brisk Flow/Perfusion cedwards 02:44 PM 2.5mm x 12mm Synergy drug-eluting stent across target lesion- successful Lot #[id number] cedwards 02:46 PM Stent deployed @ 9 papi for 18 seconds cedwards 02:47 PM Stent balloon reinflated @ 14 papi for 10 seconds cedwards 02:47 PM Time: 14:47 Nitroglycerin 200 mcg Intracoronary Given by Nael Foy MD cedwards 02:48 PM HR=49 bpm, DLTY=585/71 mmhg, SpO2=98.0 %, Resp=0 B/min, EtCO2=36 mmHg, Comment=NSR 02:49 PM Stent balloon reinflated @ 6 papi for 14 seconds cedwards 02:50 PM Stent balloon reinflated @ 8 papi for 30 seconds cedwards 02:52 PM Stent balloon reinflated @ 6 papi for 60 seconds cedwards 02:53 PM HR=46 bpm, FZGZ=713/71 mmhg, SpO2=97.0 %, Resp=20 B/min, EtCO2=47 mmHg, Comment=NSR 02:53 PM Time: 14:53 Nitroglycerin 200 mcg Intracoronary Given by Nael Foy MD cedwards 02:55 PM Stent delivery system removed intact. cedwards 02:55 PM 2.25mm x 8mm Synergy drug-eluting stent across target lesion- successful Lot #[id number] cedwards 02:56 PM Stent deployed @ 11 papi for 15 seconds cedwards 02:57 PM Stent balloon reinflated @ 14 papi for 6 seconds cedwards 02:57 PM Stent balloon reinflated @ 9 papi for 6 seconds cedwards 02:57 PM Stent balloon reinflated @ 14 papi for 10 seconds cedwards 02:58 PM Stent delivery system removed intact. cedwards 02:58 PM HR=44 bpm, ATTU=987/69 mmhg, SpO2=96.0 %, Resp=9 B/min, EtCO2=40 mmHg, Comment=NSR 02:59 PM Time: 14:58 Nitroglycerin 200 mcg Intracoronary Given by Nael Foy MD cedwards 03:01 PM Guide wire removed intact. cedwards 03:01 PM Lesion found in Mid LAD. Pre Stenosis: 50 Pre REJI Flow: cedwards 03:01 PM Recorded Pressure: Ao, HR=46, Condition=Condition 1 (Aorta) Ao 113/68/86 03:02 PM Coronary Dominance: right cedwards 03:02 PM Guide catheter removed intact. cedwards 03:03 PM HR=45 bpm, TYFW=030/69 mmhg, SpO2=95.0 %, Resp=7 B/min 03:05 PM Procedure completed at 15:05 11/18/2018 cedwards 03:05 PM Did you address REJI flow and Dominance? YesCoronary Dominance: right cedwards 03:06 PM Sign out completed: Radiation Dose 635.28 mGy, 86.9 Gy/cm2 Fluoro Time: 13.3 Isovue 370 - 200ml contrast 200 ml given by Nael Foy MD. Complications: None. The patient was discharged out of the lab assistant in stable condition. Sedation minutes 57. Cardiac Rehab Consult needed: Yes. Confirmed administered medications: Yes cedwards 03:07 PM Isovue 370 - 200ml,2 Bottle(s) used. cedwards 03:07 PM Arterial sheath pulled, Angio-seal closure device used and was Successful [id number] S/N. cedwards 03:07 PM Estimated Blood Loss: minimal cedwards 03:07 PM Post ECG Sinus Bradycardia cedwards 03:07 PM Post Blood Pressure 112/69 cedwards 03:07 PM Information taught Cardiac Cath, PCI, and Angioseal cedwards 03:07 PM Education needs Procedure, Plan of Care, and Disease Process cedwards 03:08 PM Learning barriers :None cedwards 03:08 PM Education Methods Verbal cedwards 03:08 PM Education evaluation Able to repeat information cedwards 03:08 PM Site status No bleeding/ No Hematoma - Rt Groin as reported by Laquita Sheridan RT (R) at 15:08 cedwards 03:08 PM Opsite applied cedwards 03:08 PM Plavix, Effient or Brilinta given Yes cedwards 03:08 PM Time: 15:08 Plavix 600 mg Orally Given by Anyi Gamez RN cedwards 03:08 PM HR=43 bpm, DIKK=766/71 mmhg, BpL7=777.0 %, Resp=7 B/min 03:08 PM Family placed in consult room. cedwards 03:08 PM Complications: None cedwards 03:22 PM Report given to Holly RIOS Pt taken to 2A Room #35. 15:22 cedwards 03:24 PM Lesion found in Right PDA. Pre Stenosis: 65 Pre REJI Flow: cedwards 03:25 PM Lesion found in Proximal RCA. Pre Stenosis: 50 Pre REJI Flow: cedwards Complications Complication None None Hemodynamics Pressures Site Systolic/A Wave Diastolic/V Wave Mean AO 109 65 84 LV 124 11 13 LV 121 2 20 AO 125 9 79 AO 110 58 79 AO 141 74 101 AO 113 68 86 Post Procedure Information Blood Pressure: 112/69 mmHg Rhythm: Sinus Bradycardia Post procedural instructions were given Closure Device Time Device Success/Fail 11/18/2018 3:12:00 PM Angio-Seal VIP Successful Site Checks Time Location Status Staff Sheath In? Note 03:08 PM Rt Groin No bleeding/ No Hematoma Laquita Sheridan RT (R) Pulses Time Site Pre-Procedure Post-Procedure Note Bilateral DP & PT 2+ 2+ Bilateral radial 2+ 2+ Updated by Aldair Perez RN on 11/18/2018 3:30:56 PM electronically signed on 11/18/2018 3:32:10 PM with status of Final
--- NOTE | 2018-11-18 15:44 | Internal Med Progress Note ---
Hospitalist Progress Note - Encounter Date of Encounter: 11/18/18 Time of Encounter: 09:00 - Subjective Interval History: No major events overnight. Patient was seen this a.m. He denied fever, chills or night sweats. He has no nausea, vomiting or abdominal pain. Patient denied chest pain, shortness of breath or palpitation. - Exam Vitals: Temp Pulse Resp BP Pulse Ox 97.9 F 48 16 130/69 95 11/18/18 12:04 11/18/18 12:04 11/18/18 12:04 11/18/18 12:04 11/18/18 12:04 Exam: General: Patient is alert, oriented 3. Head: Atraumatic, normal inspection, normocephalic. Eye: EOMI, PERRLA, no scleral icterus noted. ENT: Mucous membranes moist. No odontogenic infection noted. Neck: Normal inspection, no meningismus. Respiratory: No respiratory distress, rhonchi, or wheezes noted. Cardiovascular: Regular rate and regular rhythm, S1 and S2 audible. No murmurs, rubs, or gallops. GI: Soft, nondistended, normal bowel sounds. Extremities:No joint swelling, pedal edema, or tenderness noted. Neurological: Alert, oriented 3, no focal deficits. Psychiatric: normal affect, normal mood. Skin: Dry, intact, warm. Normal color. No rashes. - Assessment and Plan (1) NSTEMI (non-ST elevated myocardial infarction) Current Visit: Yes Status: Acute (2) Diabetes Current Visit: Yes Status: Acute (3) HTN (hypertension) Current Visit: Yes Status: Chronic (4) COPD (chronic obstructive pulmonary disease) Current Visit: Yes Status: Chronic (5) Sleep apnea Current Visit: Yes Status: Chronic (6) GERD (gastroesophageal reflux disease) Current Visit: Yes Status: Chronic - Summary of Assessment and Plan Summary of Assessment and Plan: Ms. Rucker is a 63 year old female with past medical history of diabetes, hyperplastic polyposis syndrome, hypertension, GERD, COPD, sleep apnea on CPAP but noncompliant, coronary artery disease with last stent in October 2012 when she had 2 stent placed in came in with complain of chest pain. Her symptoms are managed as following: NSTEMI: - TYPE I event - No ischemic changes on EKG. Troponin peaked up to 0.32. Patient remained asymptomatic and denies chest pain. - LHC today with 3 PCIs awaiting official report. - On aspirin, Lipitor and Lopressor 50 mg twice a day. DC heparin gtt, plavix to be started by cardio. - Limited echo revealed preserved ejection fraction. Echo on 10/16: 50 EF 65%, LVH, DD. Type II DM: - On metformin at home. Will DC. - On Accu-Chek 3 times a day before meals, ADA diet, MSSD. HTN: Controlled - Continue home dose Lopressor. Hold lisinopril and hydrochlorothiazide in anticipation of this heart catheterization tomorrow. COPD: - On room air, no signs of exacerbation. - Continue home dose Symbicort. DVT ppx: continue heparin gtt Diet: NPO after midnight. I reviewed independently all laboratory workup, pertinent images including x- rays and CT scans. I also reviewed independently and EKGs and my findings are in the body of my assessment and plan. I ordered the laboratory workup and images myself. I discussed finding with patient's, their families, RN's and consultants involved in the care of the patient. - Time Spent with Patient Total time spent is greater than 50% in coordination of care (as documented) at patient's floor/unit and/or counseling patient: Plan of Care Discussed with: patient Internal Medicine: Result - Labs CBC & Chem 7: 11/18/18 06:03 11/18/18 06:03 Labs: Short CBC 11/18/18 Range/Units 06:03 WBC 6.8 (4.3-11.1) K/mcL Hgb 13.9 (11.5-15.4) g/dL Hct 42.1 (35.3-44.9) % Plt Count 182 (140-400) K/mcL BMP 11/18/18 06:03 Sodium 140 Potassium 3.8 Chloride 103 Carbon Dioxide 24 BUN 31 H Creatinine 0.85 Glucose 136 H Calcium 9.7 Cardiac Enzymes 11/17/18 11/17/18 Range/Units 15:10 21:18 Troponin I 0.32 H* 0.21 H* (< 0.04) ng/mL - ABG Interpretation ABG results: PT/INR, D-dimer PT 10.8 Seconds (9.4-12.1) 11/16/18 11:28 Consult Discharge Plan - Plan Referrals: NONE,PCP [Primary Care Provider] - (2) Diabetes Qualifiers: Diabetes mellitus type: type 2 Diabetes mellitus alf insulin use: w ithout alf use Diabetes mellitus complication status: with hyperglycemia Qualified Code(s): E11.65 - Type 2 diabetes mellitus with hyperglycemia (3) HTN (hypertension) Qualifiers: Hypertension type: essential hypertension Qualified Code(s): I10 - Essential (primary) hypertension (4) COPD (chronic obstructive pulmonary disease) Qualifiers: COPD type: emphysema Emphysema type: unspecified Qualified Code(s): J43.9 - Emphysema, unspecified (5) Sleep apnea Qualifiers: Sleep apnea type: unspecified type Qualified Code(s): G47.30 - Sleep apnea, u nspecified (6) GERD (gastroesophageal reflux disease) Qualifiers: Esophagitis presence: without esophagitis Qualified Code(s): K21.9 - Gastro-e sophageal reflux disease without esophagitis
[2018-11-19 06:14] LABS: BUN/Creatinine Ratio 26 (6-26); Blood Urea Nitrogen 22 mg/dL (8-23); Calcium 9.6 mg/dL (8.6-10.3); Carbon Dioxide 28 mEq/L (23-29); Chloride 103 mEq/L (98-107); Glucose 120 mg/dL (70-105); Osmolality,Calculated 293 (280-300); Potassium 4.1 mEq/L (3.5-5.1); Sodium 139 mEq/L (136-145); eGFR For African Americans > 60 (> 60); eGFR For Non-African Americans > 60 (> 60)
[2018-11-19] MEDS: Insulin LISPRO 300 UNITS/3 ML VIAL SQ SCH ×2 (09:48→12:13)
[2018-11-19] MEDS: Aspirin 81 MG TAB.CHEW PO SCH (09:53)
[2018-11-19] MEDS: Budesonide/Formoterol 160/4.5 1 PUFF INH IH SCH (10:25)
--- NOTE | 2018-11-19 10:33 | Cardiology Progress Note ---
Date of Encounter: 11/19/18 Time of Encounter: 10:31 Assessment and Plan (1) NSTEMI (non-ST elevated myocardial infarction) Current Visit: Yes Status: Acute Mild elevation of troponins in the setting of accelerated crescendo angina and EKG changes. Troponin peaked at 0.32. S/p LHC. She received PCI with PETEY to the Lcx artery and OM with good results. Moderate non-obstructive CAD remaining. TTE EF 60%, no significant valve disease. Importance of DAPT with asa and plavix uninterrupted for minimum one year reviewed with patient and she voiced understanding. Continue statin. Metoprolol decreased to 25 mg for bradycardia. Avg HR 51 with min 47. Denies dizziness. Cardiac rehab ordered. See activity restrictions below. Out-pt f/u with Dr. Mcfarlane will be coordinated. Call with questions. RISK FACTORS: STOP SMOKING: If you smoke, STOP. Smoking or tobacco use significantly increases your risk of heart disease because nicotine causes the arteries to narrow or constrict. It also causes fats to stick to the artery. Your chances of having a heart attack are greatly increased if you continue to smoke. For more information, call the education line for smoking cessation 9-003-AHZMXWZ EAT A LOW FAT/CHOLESTEROL/SODIUM DIET: This diet may help reduce your chances of having a heart attack. LIFTING: Avoid lifting anything more than 10 pounds for 5-7 days Prior to straining, laughing, sneezing and/or coughing, apply manual pressure directly over insertion site. ACTIVITY: You may walk or climb stairs as tolerated You can resume sexual activity as tolerated In general, you are encouraged to engage in a minimum of 30 minutes or more of moderate intensity physical activity, such as brisk walking, daily or at least 3-4 times weekly BATHING Do not submerge the site into water (bath tub, hot tub, swimming pool) for 1 week. This can be a source for infection into the blood stream. You may shower after 24 hours SITE CARE: After 24 hours, you may remove the dressing and leave the site open to air. Keep the site clean and dry. Clean gently and pat dry. You can expect bruising and tenderness that gradually resolve within a week or two. Return to work as instructed per your physician Resume driving as instructed per physician Keep all scheduled follow up appointments Resume medications as instructed IMPORTANT: If prescribed a Platelet Aggregation Inhibitor such as, Plavix, Brilinta or Effient: Duration of therapy is minimum one year These medications are often used in combination with Aspirin in prevention of future heart attacks Never discontinue unless consult with your Financial Investment Adviser STROKE (CVA) Risk factors for a stroke are: Age, cigarette smoking, diabetes, excessive alcohol consumption, family history, high blood pressure, overweight, physical inactivity, prior stroke, heart attack, diagnosis of carotid artery stenosis or other artery disease. Warning signs: Sudden numbness or weakness of the face, arm or leg; especially on one side of the body, sudden confusion, trouble speaking or understanding, sudden trouble seeing in one or both eyes, sudden trouble walking, dizziness, loss of balance or coordination, sudden severe headache with no cause. Call 911 or go to the Emergency Room. CONGESTIVE HEART FAILURE: If you have been diagnosed with Congestive Heart Failure (CHF) and your symptoms return, make an appointment with your physician Weigh yourself daily. Notify your physician if you have a weight gain of two or more pounds in one day or five or more pounds in one week. If you experience any difficulty breathing, please call 911 BLEEDING: Although the risk of bleeding is minimal, it can happen. If you have any bleeding from the site, apply firm pressure above the puncture site for 10-15 minutes. If the bleeding does not stop, continue manual pressure and call 911 Contact your physician if: You develop a fever greater than 101 degrees Fahrenheit Your site becomes reddened or has any drainage You have an increase in pain or burning at the site or if a large knot forms at the site. If you experience chest pain, shortness of breath, dizziness, or extreme tiredness, stop the activity and rest. Please notify your physicians office if you experience any of these symptoms and they are not relieved by rest please call 911! Discussion w patient/family: The assessment and plan as outlined above was discussed with the patient and/or family members who expressed understanding and agreement. All questions were answered. Thank you for involving us in the care of your patient. Please call with any questions. Objective Vital Signs, Last 4 Hours Temp Pulse Resp BP Pulse Ox 11/19/18 10:26 14 94 11/19/18 07:29 98.2 F 54 14 124/71 94 Results 11/18/18 06:03 07/23/19 05:21 Lab Results 11/19/18 05:21 Sodium 139 Potassium 4.1 Chloride 103 Carbon Dioxide 28 BUN 22 Creatinine 0.84 Glucose 120 H Calcium 9.6 Consult Discharge Plan - Plan Referrals: NONE,PCP [Primary Care Provider] -
--- NOTE | 2018-11-19 11:49 | Discharge Summary ---
- NOTES TO OUTPATIENT PROVIDER Notes to Outpatient Provider: Follow-up with cardiology Orders not resulted at time of discharge: Pending orders 11/18/18 15:11 ECG 12 lead ECG [ECG] Routine ECG 12 lead ECG [ECG] Stat 11/19/18 07:00 ECG 12 lead ECG [ECG] Routine Date of Encounter: 11/19/18 Time of Encounter: 10:00 - Discharge Diagnosis (1) NSTEMI (non-ST elevated myocardial infarction) Priority: Primary Status: Acute (2) Diabetes Priority: Secondary Status: Acute Qualifiers: Diabetes mellitus type: type 2 Diabetes mellitus custodial insulin use: without custodial use Diabetes mellitus complication status: with hyperglycemia Qualified Code(s): E11.65 - Type 2 diabetes mellitus with hyperglycemia (3) HTN (hypertension) Priority: Secondary Status: Chronic Qualifiers: Hypertension type: essential hypertension Qualified Code(s): I10 - Essential (primary) hypertension (4) COPD (chronic obstructive pulmonary disease) Priority: Secondary Status: Chronic Qualifiers: COPD type: emphysema Emphysema type: unspecified Qualified Code(s): J43.9 - Emphysema, unspecified (5) Sleep apnea Priority: Secondary Status: Chronic Qualifiers: Sleep apnea type: unspecified type Qualified Code(s): G47.30 - Sleep apnea, unspecified (6) GERD (gastroesophageal reflux disease) Priority: Secondary Status: Chronic Qualifiers: Esophagitis presence: without esophagitis Qualified Code(s): K21.9 - Gastro-esophageal reflux disease without esophagitis Hospital course: Ms. Rucker is a 63 year old female with past medical history of diabetes, hyperplastic polyposis syndrome, hypertension, GERD, COPD, sleep apnea on CPAP but noncompliant, coronary artery disease with last stent in October 2012 when she had 2 stent placed in came in with complain of chest pain. Patient initially had elevated troponin. She was managed for NSTEMI with heparin drip, aspirin and beta blockers. Cardiology was consulted and LHC was done with successful PETEY PCI x 1 in LCx and x 2 branches. Today, patient is him with imaging stable. Asymptomatic. She will be discharged home in stable condition. Discharge discussed with: patient - Time Spent with Patient Total time spent providing and/or coordinating discharge services: 40minutes - Discharge Medications Prescriptions: New Atorvastatin Calcium [Lipitor] 80 mg PO HS #90 tab Metoprolol [Lopressor] 25 mg PO BID #180 tablet Clopidogrel [Plavix] 75 mg PO DAILY #90 tablet Continued Omeprazole [PriLOSEC] 40 mg PO DAILY Atorvastatin Calcium [Lipitor] 80 mg PO DAILY metFORMIN [Glucophage] 500 mg PO DAILY Albuterol Sulfate [Ventolin Hfa] 2 puff IH Q4H PRN PRN Reason: Shortness Of Breath Ranitidine HCl [Zantac] 300 mg PO DAILY hydroCHLOROthiazide [Hydrochlorothiazide] 25 mg PO DAILY Fluticasone/Vilanterol [Breo Ellipta 100-25 Mcg INH] 1 puff IH DAILY Aspirin 81 mg PO DAILY #90 tab.chew Discontinued Metoprolol [Lopressor] 50 mg PO BID Home Medications: Atorvastatin Calcium [Lipitor] 80 mg PO DAILY 02/10/16 [History] Omeprazole [PriLOSEC] 40 mg PO DAILY 02/10/16 [History] metFORMIN [Glucophage] 500 mg PO DAILY 02/10/16 [History] Albuterol Sulfate [Ventolin Hfa] 2 puff IH Q4H PRN 02/06/17 [History] Fluticasone/Vilanterol [Breo Ellipta 100-25 Mcg INH] 1 puff IH DAILY 11/18/18 [History] Ranitidine HCl [Zantac] 300 mg PO DAILY 11/18/18 [History] hydroCHLOROthiazide [Hydrochlorothiazide] 25 mg PO DAILY 11/18/18 [History] Aspirin 81 mg PO DAILY #90 tab.chew 11/19/18 [Rx] Atorvastatin Calcium [Lipitor] 80 mg PO HS #90 tab 11/19/18 [Rx] Clopidogrel [Plavix] 75 mg PO DAILY #90 tablet 11/19/18 [Rx] Metoprolol [Lopressor] 25 mg PO BID #180 tablet 11/19/18 [Rx] Allergies/Adverse Reactions: Allergy/AdvReac Type Severity Reaction Status Date / Time No Known Allergies Allergy Verified 02/06/17 08:57 Date of admission: 11/17/18 14:07 Primary care physician: PCP NONE Consults: 11/16/18 11:51 Consult to Cardiology [CONS] Stat Comment: Consulting Provider: Cardiology Irina Reason for Consult: NSTEMI Time Notified: 11:52 Call Completed: Yes 11/18/18 09:53 Consult to Nurse Navigator [CONS] Routine Comment: copd 11/18/18 15:11 Consult to Cardiac Rehabilitation-Phase1 [CONS] Routine Comment: Reason for Consult: AMI Call Completed: Yes Consult to Nurse Navigator [CONS] Routine Comment: - Constitutional Vitals: Temp Pulse Resp BP Pulse Ox 98.2 F 54 14 124/71 94 11/19/18 07:29 11/19/18 07:29 11/19/18 10:26 11/19/18 07:29 11/19/18 10:26 Exam: General: Patient is alert, oriented 3. Head: Atraumatic, normal inspection, normocephalic. Eye: EOMI, PERRLA, no scleral icterus noted. ENT: Mucous membranes moist. No odontogenic infection noted. Neck: Normal inspection, no meningismus. Respiratory: No respiratory distress, rhonchi, or wheezes noted. Cardiovascular: Regular rate and regular rhythm, S1 and S2 audible. No murmurs, rubs, or gallops. GI: Soft, nondistended, normal bowel sounds. Extremities:No joint swelling, pedal edema, or tenderness noted. Mild hematoma in the right groin area with no bruit or swelling noted. +2 pulses in the right dorsalis pedis. Neurological: Alert, oriented 3, no focal deficits. Psychiatric: normal affect, normal mood. Skin: Dry, intact, warm. Normal color. No rashes. - Patient Status Disposition: Home, Self-Care Condition: Good Functional capacity at discharge: independent ambulation Overall status at discharge: patient is back to baseline - Discharge Instructions Follow Up With: NONE,PCP [Primary Care Provider] - - Diet and Activity Activity: resume usual activities as tolerated Diet: low salt diet
[2018-11-19 12:19] VITALS: BP 151/73
--- NOTE | 2018-11-19 13:49 | Electrocardiograph Report ---
[address] [address] Test Date: 2018-11-19 Pat Name: Janee Rucker Department: 112 Room: 2A Gender: F Outpatient Surgery Rn: : [id number] Requested By: Nael Foy Order Number: [id number] Reading MD: Tomasz Baldwin Measurements Intervals Roberts Rate: 54 P: 30 AR: 155 QRS: -3 QRSD: 85 T: 18 QT: 413 QTc: 398 Interpretive Statements SINUS BRADYCARDIA BASELINE ARTIFACT Electronically Signed On 11-19-2018 13:47:06 EDT by Tomasz Baldwin
== END 2018-11-19 14:02 | disposition home or self-care (01) | DRG 174 ==
LOC: EMEROOARM 10:00 → 2ANU 10:00 → SUATTDRO 12:54 → 2ANU 13:32
PROVIDERS: ADMIT Internal Medicine; ATTEND Internal Medicine